=== PATIENT | female | born 1985 | race Caucasian/White ===

== ENCOUNTER 2019-04-29 00:53 | Emergency (ER) | payer OTHER ==
[2019-04-29 01:02] VITALS: BP 145/91; PULSE 90; RESP 16; TEMP 97.7
--- NOTE | 2019-04-29 01:28 | ED ---
General Adult HPI - General Chief complaint: Anxiety Stated complaint: Mental Health Time Seen by Provider: 04/29/19 01:10 Source: patient, RN notes reviewed, old records reviewed Mode of arrival: ambulatory Limitations: no limitations - History of Present Illness Initial comments: 34-year-old female with history of anxiety and depression presents with worsening depression and cutting her left arm. Patient states she has been dealing with a lot of stress, financial stress, family stressors and felt that cutting her left arm with a butter knife would relieve some of this tension and stress. She denies suicidal ideation. She's previously been seen by her primary care physician for depression and anxiety, not currently following with anyone and not currently on any medications. Police had been contacted by the patient's [id number] was noted that she had cut her left upper extremity. Patient brought in by police, she is calm and cooperative. No suicidal or homicidal ideation. - Related Data Home Medications Medication Instructions Recorded Confirmed No Known Home Medications 04/29/19 04/29/19 Allergies Allergy/AdvReac Type Severity Reaction Status Date / Time No Known Allergies Allergy Verified 04/29/19 01:02 Review of Systems ROS Statement: Those systems with pertinent positive or pertinent negative responses have been documented in the HPI. ROS Other: All systems not noted in ROS Statement are negative. Past Medical History Past Medical History: No Reported History History of Any Multi-Drug Resistant Organisms: None Reported Past Surgical History: Tubal Ligation Additional Past Surgical History / Comment(s): d&c Past Psychological History: Anxiety, Bipolar, Depression Smoking Status: Current every day smoker Past Alcohol Use History: None Reported Past Drug Use History: Marijuana General Exam Limitations: no limitations General appearance: alert, in no apparent distress Head exam: Present: atraumatic, normocephalic Eye exam: Present: normal appearance, PERRL, EOMI ENT exam: Present: normal exam Neck exam: Present: normal inspection. Absent: tenderness, meningismus Respiratory exam: Present: normal lung sounds bilaterally. Absent: respiratory distress, wheezes Cardiovascular Exam: Present: regular rate, normal rhythm GI/Abdominal exam: Present: soft. Absent: distended, tenderness, guarding Extremities exam: Present: other (superficial abrasion to the left upper extremity, no laceration, no hemorrhage) Neurological exam: Present: alert, oriented X3 Psychiatric exam: Present: depressed, anxious. Absent: homicidal ideation, suicidal ideation Skin exam: Present: warm, dry. Absent: cyanosis, diaphoretic Course Vital Signs 04/29/19 00:59 Temperature 97.7 F Pulse Rate 90 Respiratory 16 Rate Blood Pressure 145/91 O2 Sat by Pulse 97 Oximetry Medical Decision Making - Medical Decision Making 34-year-old female presenting with depression, anxiety, and cutting of her left wrist. Left wrist injuries are superficial no need for repair, no hemorrhage. She is not suicidal however she is evaluated by EPS on a voluntary basis. Patient felt to be safe for discharge with close outpatient follow-up. She's given resources. She signs a safety plan and is agreeable with discharge. Patient states she is up-to-date on tetanus. - Lab Data Lab Results 04/29/19 Range/Units 01:17 Urine Opiates Screen Not Detected (NotDetected) Ur Oxycodone Screen Not Detected (NotDetected) Urine Methadone Screen Not Detected (NotDetected) Ur Propoxyphene Screen Not Detected (NotDetected) Ur Barbiturates Screen Not Detected (NotDetected) U Tricyclic Antidepress Not Detected (NotDetected) Ur Phencyclidine Scrn Not Detected (NotDetected) Ur Amphetamines Screen Detected H (NotDetected) U Methamphetamines Scrn Detected H (NotDetected) U Benzodiazepines Scrn Not Detected (NotDetected) Urine Cocaine Screen Not Detected (NotDetected) U Marijuana (THC) Screen Detected H (NotDetected) Disposition Clinical Impression: Acute anxiety, Depressed Disposition: HOME SELF-CARE Condition: Good Instructions (If sedation given, give patient instructions): Depression (ED), Generalized Anxiety Disorder (ED) Is patient prescribed a controlled substance at d/c from ED?: No Referrals: None,Stated [Primary Care Provider] - 1-2 days Pineda Curiel [STAFF PHYSICIAN] - 1-2 days Time of Disposition: 02:37
[2019-04-29 01:51] LABS: Amphetamine Screen,Urine Detected (NotDetected); Barbiturate Screen,Urine Not Detected (NotDetected); Benzodiazepines Screen,Urine Not Detected (NotDetected); Cocaine Screen,Urine Not Detected (NotDetected); Methadone Screen, Urine Not Detected (NotDetected); Opiate Screen,Urine Not Detected (NotDetected); Oxycodone Screen, Urine Not Detected (NotDetected); Phencyclidine Screen,Urine Not Detected (NotDetected); Tricyclic Antidepressant,Urine Not Detected (NotDetected); Urn Cannabinoid Scrn Detected (NotDetected)
== END 2019-04-29 03:00 | disposition home or self-care (01) ==
LOC: EC 00:53
DX: F41.9 Anxiety disorder, unspecified (principal); F32.9 Major depressive disorder, single episode, unspecified; S61.512A Laceration without foreign body of left wrist, initial encounter; F17.200 Nicotine dependence, unspecified, uncomplicated; X78.1XXA Intentional self-harm by knife, initial encounter
CPT/HCPCS: 80306; 82075; 99284